=== PATIENT | female | born 1955 | race Caucasian/White ===

== ENCOUNTER 2023-01-29 17:54 | Outpatient (REF) | payer MEDICARE, SELFPAY ==
[2023-01-29 16:38] LABS: Bacteria Many HPF (Negative); C & S Indicated? C&S Done As Ordered; Casts Negative LPF (Negative); Crystals Negative HPF (Negative); Epithelial Cells Few HPF (Negative); Mucus Negative (Negative); WBC >50 HPF (0-5)
== END 2023-01-29 17:55 | disposition home or self-care (01) ==
LOC: LBN 17:54
PROVIDERS: Visit Provider Physician Assistant Medical
DX: R10.9 Unspecified abdominal pain (principal); R82.998 Other abnormal findings in urine
CPT/HCPCS: 87077; 81015; 87086; 87186

== ENCOUNTER 2023-02-08 13:38 | Outpatient (REF) | payer MEDICARE, SELFPAY ==
[2023-02-08 17:04] LABS: Bacteria Few HPF (Negative); C & S Indicated? C&S Done As Ordered; Casts Negative LPF (Negative); Crystals Negative HPF (Negative); Epithelial Cells Rare HPF (Negative); Mucus Negative (Negative); WBC 20-50 HPF (0-5)
== END 2023-02-08 13:39 | disposition home or self-care (01) ==
LOC: LBN 13:38
PROVIDERS: Visit Provider Physician Assistant Medical
DX: R30.0 Dysuria (principal)
CPT/HCPCS: 87077; 81015; 87086; 87186